=== PATIENT | male | born 1995 | race Caucasian/White ===

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

== ENCOUNTER 2017-04-23 15:37 | Emergency (ER) | payer OTHER ==
[2017-04-23 15:43] VITALS: BP 131/72; PULSE 116; TEMP 98.2; BMI 25.1
--- NOTE | 2017-04-23 17:03 | PDOC ---
History of Present Illness - General Chief Complaint: RX Refill Stated Complaint: QUICK INFUSION Time Seen by Provider: 04/23/17 16:45 History Source: Patient Exam Limitations: No Limitations - History of Present Illness Initial Comments: 04/23/17 16:55 Patient is a [21-year-old male with history of hemophilia came in for infusion of recombinate. He ran out of supplies to perform infusion at home. He sustained a superficial laceration to the tip of the right second finger last night on glass. Started to bleed. Received today with bleeding controlled. ] Past Medical History: Hemophilia Allergies: Motrin Medications: [None] Family History: Non-contributory Social History: Denies smoking, alcohol use, or IVDU Review of Systems GENERAL/CONSTITUTIONAL: [No fever or chills. No weakness. No weight change.] HEAD, EYES, EARS, NOSE AND THROAT: [No change in vision. No ear pain or discharge. No sore throat. ] CARDIOVASCULAR: [No chest pain or shortness of breath.] RESPIRATORY: [No cough, wheezing, or hemoptysis.] GASTROINTESTINAL: [No nausea, vomiting, diarrhea or constipation. No rectal bleeding.] GENITOURINARY: [No dysuria, frequency, or change in urination.] MUSCULOSKELETAL: [No joint or muscle swelling or pain. No neck or back pain.] SKIN: Facial laceration to the tip of the right second finger, area scabbed NEUROLOGIC: [No headache, vertigo, loss of consciousness, or loss of sensation.] Physical Exam: GENERAL: [The patient is awake, alert, and fully oriented, in no acute distress. ] LUNGS: [Breath sounds equal, clear to auscultation bilaterally. No wheezes, and no crackles.] HEART: [Regular rate and rhythm, normal S1 and S2 without murmur, rub or gallop. ] MUSCULOSKELETAL: [Normal range of motion, no edema. No clubbing or cyanosis. No cords, erythema, or tenderness. No CVA Tenderness with fist.] NEUROLOGICAL: [Cranial nerves II through XII grossly intact. Normal speech, normal gait.] SKIN: [Warm, Dry, normal turgor, no rashes or lesions noted. Superficial laceration to the tip of the right second finger, no active bleeding, area measures approximately 1 cm and half and scabbed.] Past History - Past Medical History Allergies/Adverse Reactions: Allergies Allergy/AdvReac Type Severity Reaction Status Date / Time ibuprofen [From Motrin] AdvReac Verified 04/23/17 15:43 Home Medications: Ambulatory Orders NK [No Known Home Medication] 10/19/16 Anemia: No (HEMOPHELIA) COPD: No DVT: No - Immunization History Immunization Up to Date: Yes - Suicide/Smoking/Psychosocial Hx Smoking History: Current every day smoker Number of Cigarettes Smoked Daily: 2 Information on smoking cessation initiated: No 'Breaking Loose' booklet given: 10/19/16 Hx Alcohol Use: Yes (SOCIAL) Drug/Substance Use Hx: No Substance Use Type: None *Physical Exam - Vital Signs Last Vital Signs Temp Pulse Resp BP Pulse Ox 98.2 F 116 H 20 131/72 98 04/23/17 15:38 04/23/17 15:38 04/23/17 15:38 04/23/17 15:38 04/23/17 15:38 Procedures - Laceration/Wound Repair Right Finger 2nd digit Wound Length: to 2.5 cm Wound Explored: clean Wound's Depth, Shape: superficial Irrigated w/ Saline: Yes Wound Repaired With: Dermabond Progress: 04/23/17 17:05 Steri-Strips placed on for stability Medical Decision Making - Medical Decision Making 04/23/17 17:03 A/P: Patient here for infusion of recombinate, vision has brought his own supply to the emergency department requesting infusion because he has hemophilia and was told that if he cuts himself he needs the infusion. Patient here with superficial laceration to the right second finger measuring only a centimeter and a half area with no active bleeding. Clot off. Because patient with no active bleeding I will hold giving him this medication at this time I discussed with patient that if he does start to rebleed to give himself the infusion. He verbalized understanding. I have applied Dermabond to area with Steri-Strips and patient to keep area extremely dry. He verbalized understanding will follow-up as needed *DC/Admit/Observation/Transfer Diagnosis at time of Disposition: Finger laceration Qualifiers: Encounter type: initial encounter Finger: index finger Damage to nail status: without damage Foreign body presence: without foreign body Laterality: right Qualified Code(s): S61.210A - Laceration without foreign body of right index finger without damage to nail, initial encounter - Discharge Dispostion Disposition: HOME Condition at time of disposition: Good Admit: No - Referrals Referrals: Konrad Morrison MD [Primary Care Provider] - - Patient Instructions Additional Instructions: These keep area extremely dry for as long as you can. Do not remove Steri- Strips on your own. Allow them to fall off by themselves. If you start to bleed, give yourself the Recombinate. Follow-up with your hemophilia doctor. - Post Discharge Activity Forms/Work/School Notes: Back to Work
== END 2017-04-23 17:13 | disposition home or self-care (01) ==
LOC: JERFT 15:37
PROC: 0HQFXZZ Repair Right Hand Skin, External Approach (ICD-10-PCS; principal; 2017-04-23)
DX: S61.210A Laceration without foreign body of right index finger without damage to nail, initial encounter (principal); W25.XXXA Contact with sharp glass, initial encounter; Y93.89 Activity, other specified; Y92.89 Other specified places as the place of occurrence of the external cause; Y99.8 Other external cause status; D66 Hereditary factor VIII deficiency
CPT/HCPCS: 12001; 99281-25